=== PATIENT | male | born 1960 | race Caucasian/White ===

== ENCOUNTER 2017-09-11 11:31 | Emergency (ER) | payer OTHER ==
[2017-09-11 12:56] LABS: ADD MAN DIFF? NO
[2017-09-11] MEDS: SOD CHLORIDE 0.9% 1,000 ML IV (12:58)
[2017-09-11] MEDS: morphine 4 MG/ML VIAL IV (12:58)
[2017-09-11] MEDS: ONDANSETRON 4 MG INJ IV (12:58)
[2017-09-11 12:59] LABS: BASOPHIL # 0.1 10^3/ul (0.0-0.1); BASOPHILS % 0.6 % (0.0-2.0); EOSINOPHILS # 0.4 10^3/ul (0.0-0.5); EOSINOPHILS % 3.3 % (0.0-7.0); HEMOGLOBIN 14.9 g/dl (14.0-18.0); LYMPHOCYTES # 2.8 10^3/ul (0.8-2.9); LYMPHOCYTES % 25.2 % (15.0-51.0); MEAN CORPUSCULAR HEMOGLOBIN 29.8 pg (29.0-33.0); MEAN CORPUSCULAR HGB CONC 34.7 g/dl (32.0-37.0); MEAN PLATELET VOLUME 9.3 fl (7.4-10.4); MONOCYTE # 0.7 10^3/ul (0.3-0.9); MONOCYTES % 6.2 % (0.0-11.0); NEUTROPHILS % 63.6 % (39.0-77.0); PLATELET COUNT 389 10^3/UL (140-415); RED CELL DISTRIBUTION WIDTH 13.2 % (11.5-14.5)
[2017-09-11 12:59] LABS: WHITE BLOOD COUNT 11.1 10^3/ul (4.8-10.8)
[2017-09-11 13:18] LABS: ALANINE AMINOTRANSFERASE 71 IU/L (13-69); ALBUMIN 4.7 g/dl (3.3-4.9); ALBUMIN/GLOBULIN RATIO 1.56; ALKALINE PHOSPHATASE 89 IU/L (42-121); ANION GAP 17 (8-16); ASPARTATE AMINO TRANSFERASE 42 IU/L (15-46); BILIRUBIN,INDIRECT 0.5 mg/dl (0-1.1); BILIRUBIN,TOTAL 0.5 mg/dl (0.2-1.3); BLOOD UREA NITROGEN 13 mg/dl (7-20); CALCIUM 9.6 mg/dl (8.4-10.2); CARBON DIOXIDE 26 mmol/L (21-31); CHLORIDE 102 mmol/L (97-110); GLUCOSE 103 mg/dl (70-220); LIPASE 96 U/L (23-300); POTASSIUM 3.7 mmol/L (3.5-5.1); SODIUM 141 mmol/L (135-144); TOTAL PROTEIN 7.7 g/dl (6.1-8.1)
[2017-09-11 13:30] LABS: TROPONIN-I < 0.012 ng/ml (0.00-0.12)
[2017-09-11] MEDS: SOD CHLORIDE 0.9% 100 ML (14:26)
[2017-09-11] MEDS: IOHEXOL 300MG/ML 150 ML BTL (14:27)
[2017-09-11] MEDS ORDERED: IBUPROFEN 600 MG TAB (16:24)
[2017-09-11] MEDS: IBUPROFEN 600 MG TAB PO (16:35)
== END 2017-09-11 16:36 | disposition home or self-care (01) ==
LOC: E/R 11:31
DX: R07.9 Chest pain, unspecified (principal); M79.605 Pain in left leg; M79.641 Pain in right hand; F17.210 Nicotine dependence, cigarettes, uncomplicated; R51 Headache
CPT/HCPCS: 29125; 36415; 70450; 71045; 71260; 72125; 73130-RT; 73590; 74177; 80053; 83690; 84484; 85025; 93005; 96374; 96375; 99291-25